=== PATIENT | male | born 1985 | race Caucasian/White ===

== ENCOUNTER 2019-08-28 14:48 | Emergency (ER) | payer OTHER ==
[~2019-08-28] VITALS: Ht 177.8 cm; Wt 113.6 kg
[2019-08-28 15:04] VITALS: BP 167/79; PULSE 78; TEMP 98.7
== END 2019-08-28 15:18 | disposition left against medical advice (07) ==
LOC: COL.ER 14:48
DX: R41.82 Altered mental status, unspecified (principal)

== ENCOUNTER → 2020-04-19 | Outpatient (CLI) | payer OTHER | LOC: COL.RAD 08:57 | DX: M51.17 Intervertebral disc disorders with radiculopathy, lumbosacral region (principal); M51.16 Intervertebral disc disorders with radiculopathy, lumbar region; M48.061 Spinal stenosis, lumbar region without neurogenic claudication; M89.38 Hypertrophy of bone, other site ==